=== PATIENT | female | born 1960 | race Caucasian/White ===

== ENCOUNTER → 2017-04-23 | Outpatient (CLI) | payer OTHER | LOC: FIMAGING 14:25 | PROVIDERS: ATTEND Internal Medicine | DX: Z12.31 Encounter for screening mammogram for malignant neoplasm of breast (principal); Z80.3 Family history of malignant neoplasm of breast | CPT/HCPCS: G0202 ==

== ENCOUNTER → 2017-06-05 | Outpatient (CLI) | payer OTHER ==
[~2017-06-05] MED LIST: IOPAMIDOL (ISOVUE-300) 100 ML BTL ONE
== END ==
LOC: FIMAGING 14:39
PROVIDERS: ATTEND Internal Medicine Gastroenterology
DX: R10.13 Epigastric pain (principal); Z80.0 Family history of malignant neoplasm of digestive organs; R91.8 Other nonspecific abnormal finding of lung field; K76.89 Other specified diseases of liver
CPT/HCPCS: Q9967

== ENCOUNTER 2017-06-08 19:19 | Emergency (ER) | payer OTHER ==
[2017-06-08 19:30] VITALS: TEMP 97.7
[2017-06-08] MEDS ORDERED: LORazepam 2 MG/ML INJ IVP ONE (19:43)
[2017-06-08] MEDS ORDERED: NS 1,000 ML IV ONE (19:43)
--- NOTE | 2017-06-08 19:43 | EDPHY ---
H & P Stated Complaint: abd pain and leg cramping since 1500 HPI/ROS: CHIEF COMPLAINT: Abdominal pain, nausea HISTORY OF PRESENT ILLNESS: The patient is a 56 y/o female with a history of chronic constipation, anxiety, and GERD arriving via EMS complaining of epigastric abdominal cramping and nausea for the last few hours. Yesterday she completed a long bike ride and had bilateral leg cramping and fatigue throughout the night. She felt normal upon waking this morning. Around 14:00, about 5.5 hours ago, she ate potato chips and developed severe stomach pain requiring her to "go upstairs and crawl into a ball." Then "my laxative kicked in and I lost fluid that way." She then says she passed out and her called 911. She attributes her symptoms to dehydration from her bike ride and is "here for IV fluids." She says she currently has "zero pain." She reports having an endoscopy 2 weeks ago that showed gastritis, but no ulcer , and an abdominal CT 2 days ago and reports it was normal. REVIEW OF SYSTEMS: Constitutional: No fever, no chills Eyes: No visual changes ENT: No sore throat Respiratory: No cough, no shortness of breath Cardiac: No chest pain Gastrointestinal: see HPI Genitourinary: No hematuria, no dysuria Skin: No rash Neurological: No headache Psychiatric: anxiety - Personal History Current Tetanus/Diphtheria Vaccine: Yes Current Tetanus Diphtheria and Acellular Pertussis (TDAP): Yes Tetanus Vaccine Date: LESS THAN 10 YRS - Medical/Surgical History PMH: PMH includes: 1. Anxiety - sees psychiatrist and counselor 2. GERD 3. Chronic constipation - chronic laxative use Hx Asthma: No Hx Chronic Respiratory Disease: No Hx Diabetes: No Hx Cardiac Disease: No Hx Renal Disease: No Hx Cirrhosis: No Hx Alcoholism: No Hx HIV/AIDS: No Hx Splenectomy or Spleen Trauma: No Other PMH: Panic attacks, Anxiety disorder, Constipation, dyspepsia, colon Polyps, HTN, accidental OD with ICU admission. Cholecystecomy. C-sections, chronic back pain. - Social History Smoking Status: Former smoker Additional Social History: at bedside. From [place]. Former smoker. - Physical Exam Exam: General Appearance: Alert, eyes closed Eyes: Pupils equal and round, no conjunctival pallor or injection ENT, Mouth: Mucous membranes moist Neck: Normal inspection Respiratory: Lungs are clear to auscultation Cardiovascular: Regular rate and rhythm Gastrointestinal: Abdomen is soft and non-tender Neurological: A&O, nonfocal exam Skin: Warm and dry, no rash Extremities: Nontender, no pedal edema Psychiatric: Anxious Constitutional: Initial Vital Signs Temperature (C) 36.5 C 06/08/17 19:26 Heart Rate 100 06/08/17 19:26 Respiratory Rate 20 06/08/17 19:26 Blood Pressure 147/95 H 06/08/17 19:26 O2 Sat (%) 100 06/08/17 19:26 O2 Delivery Mode Room Air Allergies/Adverse Reactions: penicillin V potassium [From Pen-Vee K] Allergy (Severe, Verified 06/08/17 19:34 ) Rash dexlansoprazole [From Dexilant] Allergy (Intermediate, Verified 06/08/17 19:34) Hives latex [Latex] Allergy (Intermediate, Verified 06/08/17 19:34) WATERY EYES/SWOLLEN EYES/RUNNY NOSE Penicillins Allergy (Mild, Verified 06/08/17 19:34) Rash Home Medications: Medication Instructions Recorded Acetamn/Diphenhydramine 500/25 2 each PO HS PRN 11/26/15 [Tylenol PM (*)] Aspirin [Aspirin 81mg (OTC)] 81 mg PO DAILY #30 tab 11/26/15 DULoxetine [Cymbalta 60 MG (*)] 60 mg PO HS 11/26/15 DULoxetine [Cymbalta] 40 mg PO DAILY 11/26/15 Eszopiclone [Lunesta] 3 mg PO HS 11/26/15 Linaclotide [Linzess] 290 mcg PO DAILY PRN 11/26/15 Valsartan [Diovan (*)] 160 mg PO DAILY 11/26/15 Losartan Potassium 06/08/17 Methocarbamol 06/08/17 Medical Decision Making ED Course/Re-evaluation: This is a 56 y/o female with a history of anxiety and GERD who presents with a few-hour history of muscle cramping, epigastric abdominal cramping and nausea. Her abdomen is benign and her vitals are WNL. Plan for IV, labs, and IV fluids. Patient also requested something to help her anxiety. 1mg IV Ativan administered. 2030: Reassessed patient. She feels much better, on the phone talking, appears much more animated and not anxious. 2100: Reassessed patient. Abdomen remained soft and nontender. She feels much better and is ready to go home. d/w pt underlying anxiety, as she is dramatically better after Ativan. Has a good support network. She will be discharged with standard anxiety and dehydration care and follow up instructions. Return precautions discussed. She is comfortable with this plan. Differential Diagnosis: includes though not limited to rhabdo, hyponatremia, severe dehydration, hypoglycemia, biliary colic, pancreatitis - Data Points Laboratory Results: Laboratory Results 06/08/17 20:00 06/08/17 20:00 Medications Given: Discontinued Medications Sodium Chloride (Ns) 1,000 mls @ 0 mls/hr IV EDNOW ONE; Wide Open PRN Reason: Protocol Stop: 06/08/17 19:44 Last Admin: 06/08/17 20:11 Dose: 1,000 mls Lorazepam (Ativan Injection) 1 mg IVP EDNOW ONE Stop: 06/08/17 19:44 Last Admin: 06/08/17 19:48 Dose: 1 mg Departure - Departure Disposition: Home, Routine, Self-Care Clinical Impression: Dehydration, Anxiety Condition: Good Instructions: Dehydration (ED), Anxiety (ED) Additional Instructions: Increase fluid intake. Follow up with your primary care provider for unimproved symptoms over the next few days. Return to the ED for worsening of condition. Referrals: Bailey Stovall MD [[facility] [place] Primary Care Provider] - As per Instructions Report Scribed for: Merry Rainey Report Scribed by: Cher Camejo Date of Report: 06/08/17 Time of Report: 19:43 Physician Review and Approval Statement: 06/08/17 19:43 Portions of this note were transcribed by a medical case worker. I personally performed a history, physical exam, medical decision making, and confirmed accuracy of information the transcribed note.
[2017-06-08 20:09] LABS: % IMMATURE GRANULYOCYTES 0.3 % (0.0-1.1); ABSOLUTE IMMATURE GRANULOCYTES 0.03 10^3/uL (0.00-0.10); ADD DIFF? NO; ADD MORPH? NO; ADD SCAN? NO; ATYPICAL LYMPHOCYTE FLAG 0 (0-99); FRAGMENT RBC FLAG 0 (0-99); HEMATOCRIT 39.3 % (38.0-47.0); HEMOGLOBIN 13.8 g/dL (12.6-16.3); LEFT SHIFT FLG 0 (0-99); LIPEMIA HEMOLYSIS FLAG 90 (0-99); MEAN CELL HEMOGLOBIN 32.9 pg (27.9-34.1); MEAN CELL HEMOGLOBIN CONCENTR. 35.1 g/dL (32.4-36.7); MEAN CELL VOLUME 93.8 fL (81.5-99.8); MEAN PLATELET VOLUME 10.1 fL (8.7-11.7); PLATELET CLUMPS FLAG 50 (0-99); PLATELET COUNT 269 10^3/uL (150-400); RED BLOOD CELL COUNT 4.19 10^6/uL (4.18-5.33); RED CELL DISTRIBUTION WIDTH 11.9 % (11.5-15.2)
[2017-06-08 20:18] LABS: ANION GAP 14 mEq/L (8-16); CALCIUM 9.8 mg/dL (8.5-10.4); CARBON DIOXIDE 16 mEq/l (22-31); CHLORIDE 112 mEq/L (97-110); CREATININE 0.9 mg/dL (0.6-1.0); GLOMERULAR FILTRATION RATE > 60; GLUCOSE 119 mg/dL (70-100); SODIUM 142 mEq/L (134-144)
[2017-06-08 20:57] VITALS: RESP 18
[2017-06-08 21:53] VITALS: BP 124/70; PULSE 99; O2SAT 93
== END 2017-06-08 21:52 | disposition home or self-care (01) ==
LOC: EDUNIT#
DX: F41.9 Anxiety disorder, unspecified (principal); E86.0 Dehydration; I10 Essential (primary) hypertension; E86.9 Volume depletion, unspecified; Z79.82 Long term (current) use of aspirin; Z87.891 Personal history of nicotine dependence; Z91.040 Latex allergy status
CPT/HCPCS: 96374; J2060

== ENCOUNTER → 2018-06-27 | Outpatient (CLI) | payer OTHER | LOC: FIMAGING 12:22 | PROVIDERS: ATTEND Internal Medicine | DX: Z12.31 Encounter for screening mammogram for malignant neoplasm of breast (principal) ==